=== PATIENT | female | born 1995 | race Caucasian/White ===

== ENCOUNTER 2020-07-08 09:28 | Inpatient (IN) ==
[2020-07-08] MEDS ORDERED: OXYTOCIN 30 UNITS/500 ML BAG IV PRN ×2 (09:50)
[2020-07-08] MEDS ORDERED: PENICILLIN G POTASSIUM 6 MU in DEXTROSE 5% 250 ML IV STA (10:13)
[2020-07-08 10:40] LABS: Creatinine Urine Random 65.9 mg/dl; Total Protein Urine Random < 5.0 mg/dl (0-11.9)
--- NOTE | 2020-07-08 10:42 | History & Physical Report ---
Date of Service July 08, 2020 Assessment & Plan Admission and Anticipated Discharge Date Admission Date: July 08, 2020 IUP at 40 6/7 weeks with elevated BP's and not symptomatic. PIH labs pending. will proceed with IOL now because of persistent elevated BP's pitocin augmentation of labor begun epidural analgesia when patient requests it anticipate vaginal History of Present Illness Primary Care Provider: NO PCP Patient is a 24 yo white female EDC 07/02/20 who presented for routine OB office visit at 40 6/7 weeks and was noted to have elevated BP's and she was sent to L&D for further evaluation. She was scheduled for IOL tomorrow because of post term . BP still elevated upon arrival in L&D. No other symptoms of PIH noted. NO contraction or change in discharge. She continues to be nauseous which has been a problem throughout the . GBS- positive, Blood type -O positive. Allergies Allergy/AdvReac Type Severity Reaction Status Date / Time No Known Allergies Allergy Verified 07/08/20 08:25 Home Medications Medication Instructions Recorded Confirmed Type prenat.vits,casper,nwc-edli-oervu 1 tab PO DAILY 11/20/19 07/08/20 History ondansetron HCl 4 mg tablet 4 mg PO Q4H PRN #20 tab 01/17/20 07/08/20 Rx Patient History Medical History Encounter for anatomic survey Surgical History S/P wisdom tooth extraction Family History Other Diabetes Hypertension Social History Smoking Status: Never smoker Hx Alcohol Use: No Hx Substance Use: No marital status: Single marital status details: Darren (24) [phone] Current Living Situation Comment: lives with FOB, 1 dog current occupational status: employed current occupation: [employer] Review of Systems All systems reviewed & are unremarkable except as noted in HPI & below Physical Exam Constitutional: WD/WN, vitals as above Respiratory: normal respiratory effort, lungs clear to auscultation Cardiovascular: RRR, no murmur, no edema Gastrointestinal (Abdomen): normal bowel sounds, soft, nontender, no hepatosplenomegaly Psychiatric: A+Ox3, euthymic affect Genitourinary: OB Exam Abdomen: + vertex and + estimated weight (8-9 pounds) Manual OB Exam: + cervical dilation 4 cm, + cervical effacement 90% and + station -2 OB Exam Monitor Tracing: + external FHT monitor used, + external uterine monitor used, + category I and + normal FHT variability Results & Data ([facility]) Vital Signs (Past 12 Hours) Vital Signs Pulse BP 07/08/20 10:27 97 H 141/80 H 07/08/20 10:12 100 H 136/88 07/08/20 09:58 96 H 130/70 07/08/20 09:40 93 H 129/89 Coding Level of Care Code None
[2020-07-08 10:43] LABS: Hematocrit (blood only) 40.2 % (37-47); Hemoglobin 14.1 g/dL (12.0-16.0); Mean Corpuscular Hemoglobin 31.1 pg (25-34); Mean Corpuscular Hgb Conc 35.1 g/dL (32-36); Mean Corpuscular Volume 88.5 fL (80-100); Mean Platelet Volume 10.3 fL (7.4-10.4); Platelet Count 197 K/uL (130-400); RDW Coefficient of Variation 13.3 % (11.5-14.5); RDW Standard Deviation 43.6 fL (36.4-46.3); Red Blood Count 4.54 M/uL (4.2-5.4); White Blood Count 10.16 K/uL (4.8-10.8)
--- NOTE | 2020-07-08 10:46 | Operative Report ---
PG Post Operative Report Surgeon Nellie Kaufman MD, FACOG I attest to the content of the Intraoperative Record and any orders documented therein. Any exceptions are noted below.
[2020-07-08 10:57] LABS: INR 0.9 (0.9-1.1); Partial Thromboplastin Time 25.1 Seconds (21.0-31.0); Prothrombin Time 9.2 Seconds (9.0-12.0)
[2020-07-08 11:04] LABS: Alanine Aminotransferase 18 U/L (12-78); Albumin Level 2.7 gm/dl (3.4-5.0); Aspartate Aminotransferase 15 U/L (15-37); BUN Creatinine Ratio 15.5 (10-20); Bilirubin Direct < 0.1 mg/dl (0-0.2); Blood Urea Nitrogen 7 mg/dl (7-18); Calcium 8.7 mg/dl (8.5-10.1); Carbon Dioxide 24 mmol/L (21-32); Chloride 106 mmol/L (98-107); Est GFR (African American) > 150.0; Est GFR (Non-African American) 138.3; Glucose 75 mg/dl (70-99); Potassium 3.9 mmol/L (3.5-5.1); Sodium 139 mmol/L (136-145)
[2020-07-08 11:07] LABS: Albumin Globulin Ratio 0.6 (0.9-2); Alkaline Phosphatase 214 U/L (45-117); Bilirubin,Total 0.4 mg/dl (0.2-1); Globulin 4.6 gm/dl (2.5-4.0); Total Protein 7.3 gm/dl (6.4-8.2)
[2020-07-08] MEDS: LACTATED RINGER'S 1,000 ML IV PRN ×2 (11:19→16:49)
[2020-07-08] MEDS: PENICILLIN G POTASSIUM 3 MU in DEXTROSE 5% 100 ML IV PRN ×2 (15:15→19:21)
[2020-07-08] MEDS ORDERED: SODIUM CHLORIDE 0.9% INJ 10 ML VIAL ONE ×2 (15:57→20:10)
[2020-07-08] MEDS ORDERED: ePHEDrine sulfate 50 MG/ML AMP ONE (15:57)
[2020-07-08] MEDS ORDERED: fentaNYL citrate 100 MCG/2 ML VIAL ONE ×4 (15:57→21:16)
[2020-07-08] MEDS ORDERED: BUPIVACAINE 0.25% 30 ML VIAL ONE (15:57)
[2020-07-08] MEDS ORDERED: fentaNYL 2MCG/ML ROPIVACAINE 1.25MG/ML 100 ML BAG EPI ONE (15:58)
--- NOTE | 2020-07-08 16:06 | Anesthesiology Consultation ---
Date of Service July 08, 2020 Assessment & Plan (1) Encounter for pre-operative examination: Chart Review Chart Review: Acceptable Risk for Surgery and Patient NOT seen in Pre Admission Testing Consults Requested none History Height/Weight Height: 5 ft 7 in Weight: 98.883 kg Allergies Allergy/AdvReac Type Severity Reaction Status Date / Time No Known Allergies Allergy Verified 07/08/20 08:25 Medications Home Medications Medication Instructions Recorded Confirmed Last Taken ondansetron HCl [Zofran] 4 mg PO Q6H PRN 07/08/20 07/08/20 07/07/20 21:00 prenat.vits,casper,anj-ssmz-ujqbt 1 tab PO DAILY 07/08/20 07/08/20 07/07/20 21:00 [ Vitamin] Active Medications Generic Name Dose Route Start Last Admin Trade Name Freq PRN Reason Stop Dose Admin Penicillin G Potassium 3 mu/ 106 mls @ 100 mls/hr 07/08/20 09:50 07/08/20 15:15 Dextrose IV 07/18/20 09:49 100 mls/hr Q4H PRN Administration Give until delivery Oxytocin 30 units in 500 mls @ 7.05 mls/hr 07/08/20 09:50 07/08/20 14:16 Pitocin IV 07/10/20 09:49 0.42 units/hr .Q24H PRN 7 mls/hr Labor Induction/Augmentation Titration Protocol 0.423 UNITS/HR Lactated Ringer's 1,000 mls @ 125 mls/hr 07/08/20 09:50 07/08/20 15:54 Lr IV 07/10/20 09:49 999 mls/hr .Q8H PRN Infusion L&D Protocol Protocol Past Medical History Medical History Encounter for anatomic survey Past Family History Family History Other Diabetes Hypertension Past Surgical History Surgical History S/P wisdom tooth extraction Social History Smoking Status: Never smoker Hx Alcohol Use: No Hx Substance Use: No substance use type: does not use Physical Exam Vital Signs Last Vital Signs Temp 36.7 C 07/08/20 15:00 Pulse 95 H 07/08/20 15:00 Resp 18 07/08/20 15:00 BP 129/84 07/08/20 15:00 Testing Laboratory Results 07/08/20 10:13 07/08/20 10:13 PT 9.2 Seconds (9.0-12.0) 07/08/20 10:13 INR 0.9 (0.9-1.1) 07/08/20 10:13 APTT 25.1 Seconds (21.0-31.0) 07/08/20 10:13
[2020-07-08] MEDS ORDERED: fentaNYL 2MCG/ML ROPIVACAINE 1.25MG/ML 100 ML BAG EPI PRN (16:41)
[2020-07-08] MEDS ORDERED: diphenhydrAMINE 50 MG/ML VIAL IV PRN ×2 (16:41→21:30)
[2020-07-08] MEDS ORDERED: ONDANSETRON INJ 2 MG/ML 2 ML VIAL IV PRN ×2 (16:41→21:30)
[2020-07-08] MEDS ORDERED: NALOXONE HCL 0.4 MG/1 ML VIAL/CARP IV PRN ×2 (16:41→21:30)
[2020-07-08] MEDS ORDERED: ePHEDrine sulfate 50 MG/ML AMP IV PRN ×2 (16:41→21:30)
[2020-07-08] MEDS ORDERED: NALOXONE HCL 1 MG in SODIUM CHLORIDE 0.9% 1000ML 1,000 ML IV PRN ×2 (16:41→21:30)
[2020-07-08] MEDS ORDERED: LIDOCAINE/EPINEPHRINE 2% 1:200,000 20 ML SDV ONE (20:03)
[2020-07-08] MEDS ORDERED: ONDANSETRON INJ 2 MG/ML 2 ML VIAL ONE (20:07)
[2020-07-08] MEDS ORDERED: OXYTOCIN 10 UNITS/ML VIAL ONE (20:10)
[2020-07-08] MEDS ORDERED: LACTATED RINGER'S 1,000 ML IV SCH ×2 (20:15→22:00)
[2020-07-08] MEDS ORDERED: CITRIC ACID/SODIUM CITRATE 15 ML UDC PO SCH (20:15)
--- NOTE | 2020-07-08 20:21 | Obstetrical Progress Note ---
Date of Service July 08, 2020 Assessment & Plan Admission and Anticipated Discharge Date Admission Date: July 08, 2020 Subjective patient is comfortable with epidural analgesia FHT's category 1 contractions mild to moderate q3-5 minutes cervix exam: hand presenting to elbow vaginally vertex in suprapubic position above the arm presentation patient and aware that baby is not deliverable from this presentation will proceed with section, patient and aware of risks of procedure and they ahved had all questions answered. Results & Data ([facility]) Vital Signs (Past 12 Hours) Vital Signs Temp Pulse Resp BP Pulse Ox 07/08/20 20:15 106 H 98 07/08/20 20:13 99 H 125/84 07/08/20 20:10 101 H 99 07/08/20 20:05 120 H 98 07/08/20 20:00 115 H 98 07/08/20 19:58 116 H 125/79 07/08/20 19:55 127 H 99 07/08/20 19:50 79 98 07/08/20 19:45 74 98 07/08/20 19:43 78 117/77 07/08/20 19:40 68 98 07/08/20 19:35 76 98 07/08/20 19:30 78 98 07/08/20 19:27 63 119/76 07/08/20 19:25 82 97 07/08/20 19:20 71 97 07/08/20 19:15 98.1 F 73 18 98 07/08/20 19:12 64 108/62 07/08/20 19:10 73 99 07/08/20 19:05 68 97 07/08/20 19:00 89 16 98 07/08/20 18:58 71 108/63 07/08/20 18:55 65 98 07/08/20 18:50 79 98 07/08/20 18:45 79 98 07/08/20 18:43 66 109/65 07/08/20 18:40 64 98 07/08/20 18:35 82 98 07/08/20 18:30 69 18 99 07/08/20 18:29 59 L 116/62 07/08/20 18:25 76 98 07/08/20 18:20 60 99 07/08/20 18:15 77 106/56 L 99 07/08/20 18:13 97.9 F 07/08/20 18:10 61 100 07/08/20 18:05 57 L 99 07/08/20 18:00 65 18 99 07/08/20 17:57 61 114/66 07/08/20 17:55 58 L 99 07/08/20 17:50 83 99 07/08/20 17:45 88 99 07/08/20 17:44 64 115/61 07/08/20 17:40 64 99 07/08/20 17:35 70 99 07/08/20 17:30 65 16 99 07/08/20 17:28 59 L 106/71 07/08/20 17:25 73 98 07/08/20 17:20 64 99 07/08/20 17:15 61 99 07/08/20 17:12 59 L 116/66 07/08/20 17:10 62 18 99 07/08/20 17:06 65 103/57 L 07/08/20 17:05 67 99 07/08/20 17:01 77 108/57 L 07/08/20 17:00 61 18 99 07/08/20 16:56 60 112/55 L 07/08/20 16:55 62 16 100 07/08/20 16:51 71 112/66 07/08/20 16:50 64 100 07/08/20 16:45 98.2 F 68 18 98 07/08/20 16:44 66 110/60 07/08/20 16:42 63 110/62 07/08/20 16:40 67 16 109/63 98 07/08/20 16:38 80 109/62 07/08/20 16:36 76 115/71 07/08/20 16:35 78 98 07/08/20 16:34 64 119/72 07/08/20 16:32 73 16 116/70 07/08/20 16:30 73 120/72 99 07/08/20 16:25 76 100 07/08/20 16:20 77 99 07/08/20 16:15 90 99 07/08/20 16:10 83 99 07/08/20 15:00 98.1 F 95 H 18 129/84 07/08/20 14:16 82 117/71 07/08/20 13:27 78 126/68 07/08/20 12:17 88 120/76 07/08/20 11:21 98.1 F 20 07/08/20 10:57 90 127/86 07/08/20 10:43 83 119/77 07/08/20 10:27 97 H 141/80 H 07/08/20 10:12 100 H 136/88 07/08/20 09:58 96 H 130/70 07/08/20 09:40 93 H 129/89 PG Care Time/CCT Total # of Minutes Spent Total Time Spent with Patient: Total time spent is greater than 50% in coordination of care (as documented) at patient's floor/unit and/or counseling patient: Coding Level of Care Code None
[2020-07-08] MEDS ORDERED: CITRIC ACID/SODIUM CITRATE 15 ML UDC PO ONE (20:30)
[2020-07-08] MEDS ORDERED: MIDAZOLAM HCL 1 MG/ML 2ML VIAL ONE (21:04)
[2020-07-08] MEDS ORDERED: MoRPHine SULFATE PF 1 MG/ML 10 ML AMP/VIAL ONE (21:07)
[2020-07-08] MEDS ORDERED: KETOROLAC 30 MG/ML VIAL ONE (21:15)
[2020-07-08] MEDS ORDERED: ACETAMINOPHEN 1000 MG/100 ML IV IV PRN (21:29)
[2020-07-08] MEDS ORDERED: NALOXONE HCL 0.08 MG in SYRINGE 1.8 ML IV PRN (21:30)
[2020-07-08] MEDS ORDERED: NO NARCOTICS OR SEDATIVES SCH (21:30)
[2020-07-08] MEDS ORDERED: MoRPHine SULFATE PF 1 MG/ML 10 ML AMP/VIAL EPI ONE (21:30)
[2020-07-08] MEDS ORDERED: HYDROmorphone INJ 0.5 MG/0.5 ML SYR IV PRN (21:30)
[2020-07-08] MEDS ORDERED: SODIUM CHLORIDE 0.9% 1000ML 1,000 ML IV SCH (21:30)
[2020-07-08] MEDS ORDERED: LACTATED RINGER'S 500 ML IV PRN (21:30)
[2020-07-08] MEDS ORDERED: DC INTRASPINAL MORPHINE SCH (21:30)
--- NOTE | 2020-07-08 21:40 | Post Operative Brief Note ---
PG Immediate Post Op with CF Date of Surgery July 08, 2020 Pre & Post Diagnosis Operation Date: 07/08/20 20:00 Pre-Op Diagnosis: Arm/Hand Presentation Post-Op Diagnosis: Same as Pre-op I identified the patient and participated in the time-out.: Yes Procedure Operation Date: 07/08/20 20:00 Actual Procedures p Section in LD - Nellie Kaufman MD, FACOG Surgeon Nellie Kaufman MD, FACOG [employer] Keaton Rosales MD Estimated Blood Loss 500 Findings Consistent with Post-Op Diagnosis Specimens Specimen Description: 1. Placenta - Hold 2. Cord Blood Drains Ann Catheter (Inserted prior to OR)
[2020-07-08] MEDS ORDERED: BENZOCAINE 20% AER SPR 82.5 GM CAN EXT PRN (21:58)
[2020-07-08] MEDS ORDERED: MAGNESIUM HYDROXIDE SUSP 30 ML UDC PO PRN (21:58)
[2020-07-08] MEDS ORDERED: SUPERCREAM 0.870% 15 GM JAR EXT PRN (21:58)
[2020-07-08] MEDS ORDERED: SENNA 8.6 MG TAB PO PRN (21:58)
[2020-07-08] MEDS ORDERED: DIPHTHERIA/TETANUS/PERTUSSIS 0.5 ML SYR/VIAL IM ONE (21:58)
[2020-07-08] MEDS ORDERED: HYDROCORTISONE ACETATE 25 MG SUPP PR PRN (21:58)
--- NOTE | 2020-07-08 22:03 | Anesthesia Procedure Note ---
Date of Service July 08, 2020 Anesthesia Post Epidural Note Vital Signs Vital Signs: Temp Pulse Resp BP Pulse Ox 36.7 C 81 18 111/63 99 07/08/20 19:15 07/08/20 22:00 07/08/20 19:15 07/08/20 21:56 07/08/20 22:00 Pain Intensity Lower Abdomen: Pain Intensity: 4 Notes Mental Status: alert / awake / arousable and participated in evaluation Nausea / Vomiting: adequately controlled Pain: adequately controlled Airway Patency, RR, SpO2: stable & adequate BP & HR: stable & adequate Hydration State: stable & adequate Neuraxial Anesthesia: was administered and sensory block is resolving Anesthetic Complications: no major complications apparent and Pt Satisfied with anesthetic care Epidural: Removed without complications and With tip intact Notes: Epidural site clean, dry and intact. No signs of edema, erythema or bruising at insertion site. Pt instructed to request anesthesia if she has residual lower extremity numbness or if she develops lower extremity pain or weakness, back pain or headache.
--- NOTE | 2020-07-08 22:04 | Anesthesiology Progress Note ---
Date of Service July 08, 2020 Anesthesia Post Procedure Vital Signs Vital Signs: Temp Pulse Resp BP Pulse Ox 07/08/20 22:00 81 99 07/08/20 21:56 85 111/63 07/08/20 21:55 83 99 07/08/20 20:39 160 H 155/96 H 07/08/20 20:35 140 H 99 07/08/20 20:32 126 H 140/78 07/08/20 20:30 129 H 99 07/08/20 20:28 117 H 130/74 07/08/20 20:25 103 H 98 07/08/20 20:24 113 H 126/86 07/08/20 20:20 97 H 99 07/08/20 20:15 106 H 98 07/08/20 20:13 99 H 125/84 07/08/20 20:10 101 H 99 07/08/20 20:05 120 H 98 07/08/20 20:00 115 H 98 07/08/20 19:58 116 H 125/79 07/08/20 19:55 127 H 99 07/08/20 19:50 79 98 07/08/20 19:45 74 98 07/08/20 19:43 78 117/77 07/08/20 19:40 68 98 07/08/20 19:35 76 98 07/08/20 19:30 78 98 07/08/20 19:27 63 119/76 07/08/20 19:25 82 97 07/08/20 19:20 71 97 07/08/20 19:15 36.7 C 73 18 98 07/08/20 19:12 64 108/62 07/08/20 19:10 73 99 07/08/20 19:05 68 97 07/08/20 19:00 89 16 98 07/08/20 18:58 71 108/63 07/08/20 18:55 65 98 07/08/20 18:50 79 98 07/08/20 18:45 79 98 07/08/20 18:43 66 109/65 07/08/20 18:40 64 98 07/08/20 18:35 82 98 07/08/20 18:30 69 18 99 07/08/20 18:29 59 L 116/62 07/08/20 18:25 76 98 07/08/20 18:20 60 99 07/08/20 18:15 77 106/56 L 99 07/08/20 18:13 36.6 C 07/08/20 18:10 61 100 07/08/20 18:05 57 L 99 07/08/20 18:00 65 18 99 07/08/20 17:57 61 114/66 07/08/20 17:55 58 L 99 07/08/20 17:50 83 99 07/08/20 17:45 88 99 07/08/20 17:44 64 115/61 07/08/20 17:40 64 99 07/08/20 17:35 70 99 07/08/20 17:30 65 16 99 07/08/20 17:28 59 L 106/71 07/08/20 17:25 73 98 07/08/20 17:20 64 99 07/08/20 17:15 61 99 07/08/20 17:12 59 L 116/66 07/08/20 17:10 62 18 99 07/08/20 17:06 65 103/57 L 07/08/20 17:05 67 99 07/08/20 17:01 77 108/57 L 07/08/20 17:00 61 18 99 07/08/20 16:56 60 112/55 L 07/08/20 16:55 62 16 100 07/08/20 16:51 71 112/66 07/08/20 16:50 64 100 07/08/20 16:45 36.8 C 68 18 98 07/08/20 16:44 66 110/60 07/08/20 16:42 63 110/62 07/08/20 16:40 67 16 109/63 98 07/08/20 16:38 80 109/62 07/08/20 16:36 76 115/71 07/08/20 16:35 78 98 07/08/20 16:34 64 119/72 07/08/20 16:32 73 16 116/70 07/08/20 16:30 73 120/72 99 07/08/20 16:25 76 100 07/08/20 16:20 77 99 07/08/20 16:15 90 99 07/08/20 16:10 83 99 07/08/20 15:00 36.7 C 95 H 18 129/84 07/08/20 14:16 82 117/71 07/08/20 13:27 78 126/68 07/08/20 12:17 88 120/76 07/08/20 11:21 36.7 C 20 07/08/20 10:57 90 127/86 07/08/20 10:43 83 119/77 07/08/20 10:27 97 H 141/80 H 07/08/20 10:12 100 H 136/88 07/08/20 09:58 96 H 130/70 07/08/20 09:40 93 H 129/89 Pain Intensity Lower Abdomen: Pain Intensity: 4 Transfer of Care Handoff Completed per policy Notes Mental Status: alert / awake / arousable and participated in evaluation Nausea / Vomiting: adequately controlled Pain: adequately controlled Airway Patency, RR, SpO2: stable & adequate BP & HR: stable & adequate Hydration State: stable & adequate Neuraxial Anesthesia: was administered and sensory block is resolving Anesthetic Complications: no major complications apparent and Pt Satisfied with anesthetic care
--- NOTE | 2020-07-08 22:05 | Operative Report ---
PG Post Operative Report Pre & Post Diagnosis Operation Date: 07/08/20 20:00 Pre-Op Diagnosis: Arm/Hand Presentation Post-Op Diagnosis: Same as Pre-op plus delivery of viable male infant I identified the patient and participated in the time-out.: Yes Procedure Operation Date: 07/08/20 20:00 Actual Procedures p Section in LD - Nellie Kaufman MD, FACOG Surgeon Nellie Kaufman MD, FACOG [employer] Keaton Rosales MD Estimated Blood Loss 500 Findings Consistent with Post-Op Diagnosis Specimens placenta to hold Drains Ann catheter to straight drainage- clear urine at end of case Anesthesia Type Labor Epidural Complications none Disposition Accompanied Patient To Recovery: Yes Disposition: L&D Indications Patient is a 24-year-old 1 para 0 white female who presents at 41 weeks for induction of labor because her blood pressure was elevated and postterm . The was noted to be in a vertex presentation upon arrival in labor and delivery Pitocin induction of labor was begun by protocol. At 4 cm dilation of membranes were ruptured for a copious amount of clear fluid. She received effective epidural analgesia. When the patient was examined the next time, the presenting part was no longer vertex and was an arm and hand presenting to the level of the shoulder. Because of the malpresentation, the patient and her were informed that section would be necessary for delivery. After the risks and the procedure were described to the patient and her , and all questions were answered, we proceeded to section. Description of Procedure After the patient received adequate epidural anesthesia she was prepped and draped in usual sterile fashion. A low transverse skin incision was made with a scalpel and carried to the fascia with the same scalpel. The incision was extended transversely with Campos scissors. The edges were then grasped with Ruben clamps and the underlying rectus muscles bluntly sharply dissected off the overlying fascia. The rectus muscles were then bluntly divided on the midline and the underlying peritoneum elevated and entered bluntly. The bladder was then taken down off the anterior surface of the uterus with Metzenbaum scissors and placed behind the bladder blade. The lower uterine segment was quite thin, and the head was noted To be just above the sense of the symphysis. The low uterine segment was entered with a scalpel and extended transversely. The 's head was delivered through the incision first with moderate fundal pressure and assistance of the vacuum. After the 's head was delivered the right arm was disimpacted from the pelvis and delivered next. The rest of the infant then delivered easily. The cord was then clamped and cut and the handed was handed off to Dr. Medrano who was in attendance as mural artist. The placenta was then manually removed and the uterus exteriorized and covered a clean lap sponge. The uterine cavity was explored and some retained membranes were removed. The uterus was then closed in 2 layers in a running locking imbricating fashion with 0 Monocryl suture. Hemostasis was noted to be excellent. The posterior cul-de-sac was examined and there was no retained fluid or blood noted. The incision was examined once more and continued to have excellent hemostasis. The gutters were explored and found to be free of any clot or fluid. The anterior cul-de-sac was irrigated with normal saline after the rectus muscles were closed with individual stitches of 0 Monocryl. The fascia was closed in a running fashion with 0 Vicryl. Bella's fascia was closed with 2 0 Plain in a running fashion. This was done after irrigating the adipose layer. The skin edges were then closed in a subcuticular fashion with 4-0 Vicryl. Urine was clear at the end of the case. Mother and tolerated the procedure well and were stable upon arrival in labor and delivery. I attest to the content of the Intraoperative Record and any orders documented therein. Any exceptions are noted below. OB Procedure charges OB Charges 95247 C/S
[2020-07-08] MEDS: OXYTOCIN 20 UNITS in LACTATED RINGER'S 1,000 ML IV SCH (22:28)
[2020-07-09] MEDS ORDERED: LACTATED RINGER'S 500 ML IV ONE (00:08)
[2020-07-09] MEDS: KETOROLAC 30 MG/ML VIAL IV PRN ×2 (05:43→13:56)
[2020-07-09 06:43] LABS: Basophils # (auto) 0.02 K/uL (0-0.2); Basophils % (auto) 0.1 %; Eosinophils # (auto) 0.03 K/uL (0-0.5); Eosinophils % (auto) 0.2 %; Hemoglobin 12.2 g/dL (12.0-16.0); Immature Granulocytes # (auto) 0.04 K/uL (0.00-0.02); Immature Granulocytes % (auto) 0.3 %; Lymphocytes # (auto) 2.48 K/uL (1.2-3.4); Lymphocytes % (auto) 17.2 %; Mean Corpuscular Hemoglobin 30.8 pg (25-34); Mean Corpuscular Hgb Conc 34.9 g/dL (32-36); Mean Corpuscular Volume 88.4 fL (80-100); Mean Platelet Volume 10.3 fL (7.4-10.4); Monocytes # (auto) 0.87 K/uL (0.11-0.59); Neutrophils # (auto) 10.98 K/uL (1.4-6.5); Neutrophils % (auto) 76.2 %; Platelet Count 151 K/uL (130-400); RDW Coefficient of Variation 13.4 % (11.5-14.5); RDW Standard Deviation 43.4 fL (36.4-46.3); Red Blood Count 3.96 M/uL (4.2-5.4); White Blood Count 14.42 K/uL (4.8-10.8)
[2020-07-09] MEDS: OXYTOCIN 20 UNITS in LACTATED RINGER'S 1,000 ML IV SCH (07:08)
[2020-07-09] MEDS: DOCUSATE SODIUM 100 MG CAP PO SCH ×2 (08:49→19:40)
[2020-07-09] MEDS: FERROUS SULFATE 325 MG TAB PO SCH (08:49)
[2020-07-09] MEDS: SIMETHICONE 80 MG CHEW PO SCH ×4 (08:49→19:40)
[2020-07-09] MEDS: PRENATAL VITAMIN 1 TAB PO SCH (08:49)
--- NOTE | 2020-07-09 09:07 | Obstetrical Progress Note ---
Date of Service <Julisa Ramirez DO - Last Filed: 07/09/20 09:07> July 09, 2020 Assessment & Plan <Julisa Ramirez DO - Last Filed: 07/09/20 09:07> (1) state: POD #1 - PNL: Rh pos, RI, GBS positive, COVID neg - Feels well today. Eating well, voiding well, ambulating well. - Pain well controlled with ibuprofen 600mg Q4H PRN - Routine care -- OOB, ambulation, diet progression as tolerated - After discharge will have 6 week follow-up with Dr. Castrejon. Subjective <Julisa Ramirez DO - Last Filed: 07/09/20 09:07> Albert Joseph is a 24 y/o female who is POD #1 following delivery due to malpresentation after IOL due to HTN at 40 +6 weeks. She reports feeling well overall this morning. Minimal abdominal cramping well managed on analgesics. Voiding without dysuria. Tolerating meals overnight without difficulty. Patient has been able to ambulate some. Has persistent lochia with some improvement this morning. Currently . Review of Systems Denies fever or chills. Denies shortness of breath or cough. Denies chest pain. Denies breast pain. Denies dysuria. Denies leg pain or leg swelling. Denies headache or changes in vision. Physical Exam <Julisa Ramirez DO - Last Filed: 07/09/20 09:07> General: Alert, oriented. No acute distress. Cardiac: Regular rate and rhythm. No murmurs. Respiratory: Clear to auscultation bilaterally a/p, no wheezes/rales/rhonchi. No increased work of breathing. Symmetrical chest rise. No respiratory distress. Abdomen: Soft, nontender, nondistended. Bowel sounds present. Uterus: Uterine fundus firm, palpable at umbilicus. Surgical scar clean and healing well. Lower Extremities: No lower extremity edema or swelling. No deep calf pain. Results & Data ([facility]) <Julisa Ramirez DO - Last Filed: 07/09/20 09:07> Vital Signs (Past 12 Hours) Vital Signs Temp Pulse Pulse Pulse Resp BP BP 07/09/20 07:30 36.6 C 64 18 116/81 07/09/20 07:15 18 07/09/20 06:26 18 07/09/20 05:25 18 07/09/20 04:37 18 07/09/20 03:15 18 07/09/20 02:30 18 07/09/20 01:18 18 07/09/20 00:15 37 C 71 18 113/76 07/09/20 00:01 75 116/76 07/09/20 00:00 37.0 C 65 18 112/62 07/08/20 23:55 58 L 114/72 07/08/20 23:50 60 07/08/20 23:46 57 L 119/79 07/08/20 23:45 57 L 07/08/20 23:40 64 07/08/20 23:36 64 114/64 07/08/20 23:35 62 07/08/20 23:34 65 108/57 L 07/08/20 23:30 69 18 07/08/20 23:25 60 07/08/20 23:20 63 07/08/20 23:18 18 07/08/20 23:15 70 110/73 07/08/20 23:10 63 07/08/20 23:05 56 L 111/67 07/08/20 23:00 57 L 18 07/08/20 22:55 60 18 110/63 07/08/20 22:50 59 L 07/08/20 22:45 62 18 104/60 07/08/20 22:40 59 L 103/59 L 07/08/20 22:35 56 L 18 98/56 L 07/08/20 22:28 71 90/54 L 07/08/20 22:25 18 07/08/20 22:15 18 07/08/20 22:08 94 H 113/65 07/08/20 22:05 76 18 07/08/20 22:00 81 07/08/20 21:56 85 111/63 07/08/20 21:55 36.7 C 83 18 Pulse Ox 07/09/20 07:30 96 07/09/20 07:15 97 07/09/20 06:26 92 07/09/20 05:25 95 07/09/20 04:37 94 07/09/20 03:15 98 07/09/20 02:30 95 07/09/20 01:18 95 07/09/20 00:15 96 07/09/20 00:01 07/09/20 00:00 98 07/08/20 23:55 97 07/08/20 23:50 97 07/08/20 23:46 07/08/20 23:45 97 07/08/20 23:40 98 07/08/20 23:36 07/08/20 23:35 98 07/08/20 23:34 07/08/20 23:30 98 07/08/20 23:25 98 07/08/20 23:20 98 07/08/20 23:18 07/08/20 23:15 98 07/08/20 23:10 99 07/08/20 23:05 98 07/08/20 23:00 98 07/08/20 22:55 98 07/08/20 22:50 98 07/08/20 22:45 98 07/08/20 22:40 98 07/08/20 22:35 98 07/08/20 22:28 07/08/20 22:25 07/08/20 22:15 07/08/20 22:08 07/08/20 22:05 98 07/08/20 22:00 99 07/08/20 21:56 07/08/20 21:55 97 Laboratory Results 07/09/20 07/08/20 07/08/20 Range/Units 06:09 10:13 10:13 WBC 14.42 H 10.16 (4.8-10.8) K/uL RBC 3.96 L 4.54 (4.2-5.4) M/uL Hgb 12.2 14.1 (12.0-16.0) g/dL Hct 35.0 L 40.2 (37-47) % MCV 88.4 88.5 (80-100) fL MCH 30.8 31.1 (25-34) pg MCHC 34.9 35.1 (32-36) g/dL RDW Std Deviation 43.4 43.6 (36.4-46.3) fL RDW Coeff of Arik 13.4 13.3 (11.5-14.5) % Plt Count 151 197 (130-400) K/uL MPV 10.3 10.3 (7.4-10.4) fL Immature Gran % (Auto) 0.3 % Neut % (Auto) 76.2 % Lymph % (Auto) 17.2 % [place] % (Auto) 6.0 % Eos % (Auto) 0.2 % Baso % (Auto) 0.1 % Neut # (Auto) 10.98 H (1.4-6.5) K/uL Lymph # (Auto) 2.48 (1.2-3.4) K/uL [place] # (Auto) 0.87 H (0.11-0.59) K/uL Eos # (Auto) 0.03 (0-0.5) K/uL Baso # (Auto) 0.02 (0-0.2) K/uL Immature Gran # (Auto) 0.04 H (0.00-0.02) K/uL PT (9.0-12.0) Seconds INR (0.9-1.1) APTT (21.0-31.0) Seconds PTT Ratio Sodium 139 (136-145) mmol/L Potassium 3.9 (3.5-5.1) mmol/L Chloride 106 (98-107) mmol/L Carbon Dioxide 24 (21-32) mmol/L Anion Gap 9.0 (3-11) BUN 7 (7-18) mg/dl Creatinine 0.48 L Est Cr Clr Drug Dosing Not Reportable Est GFR ( Amer) > 150.0 Est GFR (Non-Af Amer) 138.3 BUN/Creatinine Ratio 15.5 (10-20) Glucose 75 (70-99) mg/dl Calcium 8.7 (8.5-10.1) mg/dl Total Bilirubin 0.4 (0.2-1) mg/dl Direct Bilirubin < 0.1 (0-0.2) mg/dl AST 15 ALT 18 Alkaline Phosphatase 214 H (45-117) U/L Total Protein 7.3 (6.4-8.2) gm/dl Albumin 2.7 L (3.4-5.0) gm/dl Globulin 4.6 H (2.5-4.0) gm/dl Albumin/Globulin Ratio 0.6 L (0.9-2) Ur Random Creatinine mg/dl U Random Total Protein (0-11.9) mg/dl Protein/Creatinin Ratio COVID-19 Eval Order SARS-CoV-2, RNA, NAAT (NEGATIVE) 07/08/20 07/08/20 07/08/20 Range/Units 10:13 10:13 10:06 WBC (4.8-10.8) K/uL RBC (4.2-5.4) M/uL Hgb (12.0-16.0) g/dL Hct (37-47) % MCV (80-100) fL MCH (25-34) pg MCHC (32-36) g/dL RDW Std Deviation (36.4-46.3) fL RDW Coeff of Arik (11.5-14.5) % Plt Count (130-400) K/uL MPV (7.4-10.4) fL Immature Gran % (Auto) % Neut % (Auto) % Lymph % (Auto) % [place] % (Auto) % Eos % (Auto) % Baso % (Auto) % Neut # (Auto) (1.4-6.5) K/uL Lymph # (Auto) (1.2-3.4) K/uL [place] # (Auto) (0.11-0.59) K/uL Eos # (Auto) (0-0.5) K/uL Baso # (Auto) (0-0.2) K/uL Immature Gran # (Auto) (0.00-0.02) K/uL PT 9.2 (9.0-12.0) Seconds INR 0.9 (0.9-1.1) APTT 25.1 (21.0-31.0) Seconds PTT Ratio 1.0 Sodium (136-145) mmol/L Potassium (3.5-5.1) mmol/L Chloride (98-107) mmol/L Carbon Dioxide (21-32) mmol/L Anion Gap (3-11) BUN (7-18) mg/dl Creatinine Cancelled Est Cr Clr Drug Dosing Cancelled Est GFR ( Amer) Cancelled Est GFR (Non-Af Amer) Cancelled BUN/Creatinine Ratio (10-20) Glucose (70-99) mg/dl Calcium (8.5-10.1) mg/dl Total Bilirubin (0.2-1) mg/dl Direct Bilirubin (0-0.2) mg/dl AST Cancelled ALT Cancelled Alkaline Phosphatase (45-117) U/L Total Protein (6.4-8.2) gm/dl Albumin (3.4-5.0) gm/dl Globulin (2.5-4.0) gm/dl Albumin/Globulin Ratio (0.9-2) Ur Random Creatinine mg/dl U Random Total Protein (0-11.9) mg/dl Protein/Creatinin Ratio COVID-19 Eval Order SARS-CoV-2, RNA, NAAT NEGATIVE (NEGATIVE) 07/08/20 07/08/20 Range/Units 10:06 09:57 WBC (4.8-10.8) K/uL RBC (4.2-5.4) M/uL Hgb (12.0-16.0) g/dL Hct (37-47) % MCV (80-100) fL MCH (25-34) pg MCHC (32-36) g/dL RDW Std Deviation (36.4-46.3) fL RDW Coeff of Arik (11.5-14.5) % Plt Count (130-400) K/uL MPV (7.4-10.4) fL Immature Gran % (Auto) % Neut % (Auto) % Lymph % (Auto) % [place] % (Auto) % Eos % (Auto) % Baso % (Auto) % Neut # (Auto) (1.4-6.5) K/uL Lymph # (Auto) (1.2-3.4) K/uL [place] # (Auto) (0.11-0.59) K/uL Eos # (Auto) (0-0.5) K/uL Baso # (Auto) (0-0.2) K/uL Immature Gran # (Auto) (0.00-0.02) K/uL PT (9.0-12.0) Seconds INR (0.9-1.1) APTT (21.0-31.0) Seconds PTT Ratio Sodium (136-145) mmol/L Potassium (3.5-5.1) mmol/L Chloride (98-107) mmol/L Carbon Dioxide (21-32) mmol/L Anion Gap (3-11) BUN (7-18) mg/dl Creatinine Est Cr Clr Drug Dosing Est GFR ( Amer) Est GFR (Non-Af Amer) BUN/Creatinine Ratio (10-20) Glucose (70-99) mg/dl Calcium (8.5-10.1) mg/dl Total Bilirubin (0.2-1) mg/dl Direct Bilirubin (0-0.2) mg/dl AST ALT Alkaline Phosphatase (45-117) U/L Total Protein (6.4-8.2) gm/dl Albumin (3.4-5.0) gm/dl Globulin (2.5-4.0) gm/dl Albumin/Globulin Ratio (0.9-2) Ur Random Creatinine 65.9 mg/dl U Random Total Protein < 5.0 (0-11.9) mg/dl Protein/Creatinin Ratio TNP [facility], NAAT (NEGATIVE) <Nellie Kaufman MD, FACOG - Last Filed: 07/09/20 09:12> Co-Signing Physician Notes Resident Physician Supervision Note: I was present with Dr. Ramirez during the history and exam. I discussed the case with the resident and agree with the findings and plan as documented in the note. Any exceptions or clarifications are listed here: [None] Documented By: Nellie Kaufman MD, FACOG Resident Activity Tracking <Julisa Ramirez DO - Last Filed: 07/09/20 09:07> Resident Involvement: Resident Care Provided Care Provided: OB Delivery
[2020-07-09] MEDS ORDERED: ONDANSETRON INJ 2 MG/ML 2 ML VIAL IV PRN (15:30)
[2020-07-09] MEDS ORDERED: KETOROLAC 30 MG/ML VIAL IV PRN (15:30)
[2020-07-09] MEDS ORDERED: MEPERIDINE HCL 50 MG/ML CARP IV PRN (15:30)
[2020-07-09] MEDS ORDERED: PROMETHAZINE HCL 25 MG in SODIUM CHLORIDE 0.9% 50 ML IV PRN (15:30)
[2020-07-09] MEDS ORDERED: diphenhydrAMINE Capsule 25 MG CAP PO PRN (15:30)
[2020-07-09] MEDS ORDERED: diphenhydrAMINE 50 MG/ML VIAL IV PRN (15:30)
[2020-07-09] MEDS: oxyCODONE/ACETAMINOPHEN 5mg/325mg TAB PO PRN ×2 (17:36→21:02)
[2020-07-09] MEDS ORDERED: bisacodyL 5 MG TABEC PO SCH (20:00)
[2020-07-09] MEDS: IBUPROFEN 600 MG TAB PO PRN (21:02)
[2020-07-10] MEDS: IBUPROFEN 600 MG TAB PO PRN ×5 (01:32→23:47)
[2020-07-10] MEDS: oxyCODONE/ACETAMINOPHEN 5mg/325mg TAB PO PRN ×5 (01:32→23:46)
[2020-07-10 06:28] LABS: Hematocrit (blood only) 39.5 % (37-47); Hemoglobin 13.3 g/dL (12.0-16.0)
--- NOTE | 2020-07-10 07:33 | Obstetrical Progress Note ---
Date of Service <Julisa Ramirez DO - Last Filed: 07/10/20 07:33> July 10, 2020 Assessment & Plan <Julisa Ramirez DO - Last Filed: 07/10/20 07:33> (1) state: POD #2 - PNL: Rh pos, RI, GBS positive, COVID neg - Feels well today. Eating well, voiding well, ambulating well. - Pain well controlled with ibuprofen 600mg Q4H PRN - Routine care -- OOB, ambulation, diet progression as tolerated - After discharge will have 6 week follow-up with Dr. Castrejon. - Plan for d/c home tomorrow pending continued satisfactory progression of care. Subjective <Julisa Ramirez DO - Last Filed: 07/10/20 07:33> Albert Joseph is a 24 y/o female who is POD #2 following delivery due to malpresentation at 40 +6 weeks. She reports feeling well overall this morning. Mild abdominal cramping and 4/10 pain well managed on analgesics. Voiding without dysuria. Tolerating meals overnight without difficulty, nausea, or vomiting. Patient has been able to ambulate some. She is passing gas. Has persistent lochia with some improvement this morning. Currently bottle feeding. Review of Systems Denies fever or chills. Denies shortness of breath or cough. Denies chest pain. Denies breast pain. Denies dysuria. Denies leg pain or leg swelling. Denies headache or changes in vision. Physical Exam <Julisa Ramirez DO - Last Filed: 07/10/20 07:33> General: Alert, oriented. No acute distress. Cardiac: Regular rate and rhythm. No murmurs. Respiratory: Clear to auscultation bilaterally a/p, no wheezes/rales/rhonchi. No increased work of breathing. Symmetrical chest rise. No respiratory distress. Abdomen: Soft, nontender, nondistended. Bowel sounds present. Uterus: Uterine fundus firm, palpable at umbilicus. Surgical scar clean and healing well. Lower Extremities: No lower extremity edema or swelling. No deep calf pain. Results & Data ([facility]) <Julisa Ramirez DO - Last Filed: 07/10/20 07:33> Vital Signs (Past 12 Hours) Vital Signs Temp Pulse Resp BP Pulse Ox 07/09/20 22:20 36.8 C 60 16 116/79 98 07/09/20 19:40 36.8 C 89 16 116/81 97 Laboratory Results 07/10/20 Range/Units 06:18 Hgb 13.3 (12.0-16.0) g/dL Hct 39.5 (37-47) % <Nichole Rosales MD, FACOG - Last Filed: 07/10/20 07:42> Co-Signing Physician Notes Resident Physician Supervision Note: I was present with Dr. Ramirez during the history and exam. I discussed the case with the resident and agree with the findings and plan as documented in the note. Any exceptions or clarifications are listed here: [None] Documented By: Nichole Rosales MD, FACOG Resident Activity Tracking <Julisa Ramirez DO - Last Filed: 07/10/20 07:33> Resident Involvement: Resident Care Provided Care Provided: OB Delivery
[2020-07-10] MEDS: PRENATAL VITAMIN 1 TAB PO SCH (08:36)
[2020-07-10] MEDS: SIMETHICONE 80 MG CHEW PO SCH ×4 (08:36→20:36)
[2020-07-10] MEDS: FERROUS SULFATE 325 MG TAB PO SCH (08:36)
[2020-07-10] MEDS: DOCUSATE SODIUM 100 MG CAP PO SCH ×2 (08:36→20:36)
[2020-07-10] MEDS ORDERED: bisacodyL 10 MG SUPP PR PRN (21:58)
--- NOTE | 2020-07-11 07:09 | Obstetrical Progress Note ---
Date of Service <Julisa Ramirez DO - Last Filed: 07/11/20 07:25> July 11, 2020 Assessment & Plan <Julisa Viktor Ramirez DO - Last Filed: 07/11/20 07:25> (1) state: POD #3 - PNL: Rh pos, RI, GBS positive, COVID neg - Feels well today. Eating well, voiding well, ambulating well. - Pain well controlled with ibuprofen 600mg Q4H PRN - Routine care -- OOB, ambulation, diet progression as tolerated - Elected to bottle feed. Instructed patient on use of tight bra/sports bra to prevent influx of milk. - Discharge instructions discussed in detail with patient. All questions answered. - After discharge will have 6 week follow-up with Dr. Castrejon. Subjective <Julisa MarieeBubba Ramirez - Last Filed: 07/11/20 07:25> Albert Joseph is a 24 y/o female who is POD #3 following delivery due to malpresentation at 40 +6 weeks. She reports feeling well overall this morning. Minimal abdominal cramping and 3/10 pain well managed on analgesics. Voiding without dysuria. Tolerating meals overnight without difficulty, nausea, or vomiting. Patient has been able to ambulate some. She is passing gas but has not yet had a bowel movement. Has persistent lochia with some improvement this morning. Currently bottle feeding. Review of Systems Denies fever or chills. Denies shortness of breath or cough. Denies chest pain. Denies breast pain. Denies dysuria. Denies leg pain or leg swelling. Denies headache or changes in vision. Physical Exam <Julisa Ramirez DO - Last Filed: 07/11/20 07:25> General: Alert, oriented. No acute distress. Cardiac: Regular rate and rhythm. No murmurs. Respiratory: Clear to auscultation bilaterally a/p, no wheezes/rales/rhonchi. No increased work of breathing. Symmetrical chest rise. No respiratory distress. Abdomen: Soft, nontender, nondistended. Bowel sounds present. Uterus: Uterine fundus firm, palpable at umbilicus on left. Surgical scar clean and healing well. Lower Extremities: No lower extremity edema or swelling. No deep calf pain. Results & Data ([facility]) <Julisa Ramirez DO - Last Filed: 07/11/20 07:25> Vital Signs (Past 12 Hours) Vital Signs Temp Pulse Resp BP Pulse Ox 07/10/20 23:45 36.7 C 58 L 16 117/78 99 07/10/20 20:30 36.7 C 77 16 132/89 100 <Li Erwin MD, FACOG - Last Filed: 07/11/20 07:31> Co-Signing Physician Notes Resident Physician Supervision Note: I was present with Dr. Ramirez during the history and exam. I discussed the case with the resident and agree with the findings and plan as documented in the note. Any exceptions or clarifications are listed here: doing well, ready to go home. pain meds working well. eating, voiding, ambulating. ff 2 down, nt, incision c/d/i and nt calves. instructions reviewed. script sent. plan 6wk pp check. Documented By: Li Erwin MD, FACOG Resident Activity Tracking <Julisa Ramirez DO - Last Filed: 07/11/20 07:25> Resident Involvement: Resident Care Provided Care Provided: OB Delivery
[2020-07-11] MEDS: FERROUS SULFATE 325 MG TAB PO SCH (07:24)
[2020-07-11] MEDS: DOCUSATE SODIUM 100 MG CAP PO SCH (07:24)
[2020-07-11] MEDS: SIMETHICONE 80 MG CHEW PO SCH (07:24)
[2020-07-11] MEDS: PRENATAL VITAMIN 1 TAB PO SCH (07:24)
[2020-07-11] MEDS: IBUPROFEN 600 MG TAB PO PRN ×2 (07:24→11:13)
[2020-07-11] MEDS: oxyCODONE/ACETAMINOPHEN 5mg/325mg TAB PO PRN ×2 (07:25→11:14)
--- NOTE | 2020-07-15 22:09 | Discharge Summary (DS) ---
PRINCIPAL DIAGNOSIS: Intrauterine at 40 weeks, presentation for induction of labor because of elevated blood pressure, arm, hand presentation. PRINCIPAL PROCEDURE: Primary low transverse section. HISTORY: The patient is a 24-year-old 1, para 0 white female who presented at 41 weeks for induction because her blood pressure was elevated and because she was post-term . Initially the infant was noted to be in vertex presentation and appeared to be engaged in the pelvis. Induction of labor was begun. At 4 cm dilated membranes were ruptured for a copious amount of clear fluid. After this, she received effective epidural. She was examined after the epidural was effective and it was noted that the presenting part was an arm prolapsing through the cervix to the level of the elbow. The vertex was now at the level of the symphysis by ultrasound. Because of the prolapsed arm vaginally, it was felt prudent to proceed with low transverse section, which was done without difficulty. She had an uncomplicated postop course. She remained afebrile throughout her hospital stay, her blood pressure normalized shortly after her arrival in labor and delivery. She was eating regular diet, ambulating and voiding without difficulty on her 1st postop day. Pain was well controlled with just ibuprofen 600 mg every 4-6 hours. LABORATORY DATA: Hemoglobin on admission was 12.2, hematocrit of 35.0. First postop day, hemoglobin was 13.3, hematocrit of 39.5. [facility] labs were also within normal limits on admission. She was sent home in good condition with a prescription for 600 mg ibuprofen every 4-6 hours p.r.n. pain. She is to call for temperature of 101 degrees or higher, heavy vaginal bleeding, burning with urination, increased redness, drainage or pain from her incision, calf tenderness or preeclamptic symptoms. She is to be seen in the office in 6 weeks for followup visit.
== END 2020-07-11 11:30 | disposition home or self-care (01) | DRG 788 ==
LOC: 4S1 09:28 → 4S2 07-09 00:18

== ENCOUNTER 2023-12-24 04:07 | Inpatient (IN) ==
[2023-12-24] MEDS: LACTATED RINGER'S 1,000 ML IV PRN (04:59)
[2023-12-24] MEDS: LACTATED RINGER'S 1,000 ML IV SCH ×2 (07:00→13:40)
--- NOTE | 2023-12-24 07:35 | History & Physical Report ---
Date of Service December 24, 2023 Assessment & Plan (1) Previous delivery affecting , antepartum: Plan: Patient has been 1 to 1.5 cm on 2 checks her contraction pattern is not that of active labor and heart rate tracing is category 1 I advised that because she is only 37 weeks and 2 days that we would need to see clear change of the cervix noted proceed with she is actually responded to hydration and says that tightenings are less at this stage Continue to observe History of Present Illness Primary Care Provider: Tyrone Pineda MD Visit [place] Calculator Estimated Delivery Date Method Current WG Current Estimate 01/10/24 LMP (Certain) 37w 1d LMP: 04/05/23 : 2 Full term: 1 Premature: 0 Total Number of Induced Abortions: 0 Total Number of Spontaneous Abortions: 0 Ectopics: 0 Multiple births: 0 Number of Living Children: 1 and Delivery Plans Previous --malpresentation - Plans for repeat and tubal C/S WITH TUBAL SCHEDULED FOR 01/06/[address] STRICKLAND Patient reported contractions last night and also shooting vaginal pain she is 37 weeks and a few days second first was a section and she plans on a repeat section. While she feels tightenings in the upper abdomen it was the sharp vaginal pains that brought her in. No leakage of fluid no bleeding Allergies Allergy/AdvReac Type Severity Reaction Status Date / Time No Known Allergies Allergy Verified 12/24/23 04:27 Home Medications Medication Instructions Recorded Confirmed Type 21-iron fu-folic acid 1 tab PO HS 05/27/23 12/24/23 History [ Complete] ondansetron HCl 8 mg tablet 8 mg PO Q8H PRN nausea and 08/15/23 12/24/23 Rx vomiting 5 days #30 tabs Patient History Medical History History of anxiety No medications at this time Varicella vaccination Surgical History (Updated 12/24/23 @ 04:27 by Maty Carlin, RN) S/P section 07/08/20 malpresentation S/P wisdom tooth extraction Family History Grandmother (Maternal) Breast cancer great grandmother Family/Other Hydrocephalus Nephew Brain tumor Other Diabetes Hypertension Denies family history of Ovarian cancer Colorectal cancer Social History (Updated 05/27/23 @ 09:00 by Allie Lafleur) Smoking Status: Never smoker Second Hand Exposure: No; Do You Dip or Chew Tobacco: No; Hx Alcohol Use: No Hx Substance Use: No Preferred Language: Turkmen Communication Ability: Effective Rn Ante Partum Required: No Beliefs That Will Affect Care: None marital status: marital status details: Darren Arguello(28) [phone] Current Living Situation: Spouse Current Living Situation Comment: house with and son current occupational status: employed current occupation: [employer] Other Information That Helps Us Care for You: No Feels Safe at Home: Yes Safety Concerns: Feels Safe At This Time Assistive Devices: None Physical Exam Constitutional: WD/WN, vitals as above well developed and well nourished Respiratory: normal respiratory effort, lungs clear to auscultation normal respiratory effort Cardiovascular: RRR, no murmur, no edema Gastrointestinal (Abdomen): normal bowel sounds, soft, nontender, no hepatosplenomegaly Results & Data Vital Signs (Past 12 Hours) Vital Signs Temp Pulse Resp BP O2 Del Method 12/24/23 07:00 98.4 F 77 20 117/76 12/24/23 04:40 97.5 F L 100 H 18 115/70 12/24/23 04:28 97.5 F L 18 Room Air Coding Level of Care Code None Diagnoses Previous delivery affecting , antepartum O34.219
--- NOTE | 2023-12-24 09:07 | Labor Progress Brief Note ---
Date of Service December 24, 2023 Subjective pt feels pain with ctx, kirk when walking Assessment & Plan (1) Previous delivery affecting , antepartum: (2) 37 weeks gestation of : Plan cx has changed from prior exams. no rom. will put on monitor and see about labor pattern. fhts categ 1. will reeval cx moving forward and proceed with c/s if cx cont to change. Physical Exam Constitutional: WD/WN, vitals as above Genitourinary: Manual OB Exam: + cervical dilation 3 cm, + cervical effacement 80% and + station -2 currently not on monitor Results & Data Vital Signs (Past 12 Hours) Vital Signs Temp Pulse Resp BP O2 Del Method 12/24/23 07:00 98.4 F 77 20 117/76 12/24/23 04:40 97.5 F L 100 H 18 115/70 12/24/23 04:28 97.5 F L 18 Room Air Coding Level of Care Code None Diagnoses Previous delivery affecting , antepartum O34.219 37 weeks gestation of Z3A.37
--- NOTE | 2023-12-24 10:22 | Labor Progress Brief Note ---
Date of Service December 24, 2023 Subjective pt feels ctx are worse, stronger and just as frequent. Assessment & Plan (1) 37 weeks gestation of : (2) Previous delivery affecting , antepartum: Plan cx continues to change in early labor. will rec proceeding with delivery and pt agrees. fhts categ 1. plans repeat c/s and does desire tubal, and aware of plan for distal salpingectomies and agrees. She is sure this is how she wants to proceed. Declines . Consent reviewed and signed. Physical Exam Constitutional: WD/WN, vitals as above Genitourinary: Manual OB Exam: + cervical dilation (3-4), + cervical effacement 90% and + station -2 OB Exam Monitor Tracing: + external FHT monitor used, + external uterine monitor used (q2), + category I and + normal FHT variability Results & Data Vital Signs (Past 12 Hours) Vital Signs Temp Pulse Resp BP O2 Del Method 12/24/23 09:28 78 129/80 12/24/23 09:01 20 12/24/23 09:01 98.2 F 20 12/24/23 07:00 98.4 F 77 20 117/76 12/24/23 04:40 97.5 F L 100 H 18 115/70 12/24/23 04:28 97.5 F L 18 Room Air Coding Level of Care Code None Diagnoses 37 weeks gestation of Z3A.37 Previous delivery affecting , antepartum O34.219
[2023-12-24] MEDS ORDERED: PHENYLEPHRINE HCL 10 MG/ML VIAL ONE (10:27)
[2023-12-24] MEDS ORDERED: ONDANSETRON INJ 2 MG/ML 2 ML VIAL ONE (10:27)
[2023-12-24] MEDS ORDERED: DEXAMETHASONE SOD INJ 4 MG/ML VIAL ONE (10:27)
[2023-12-24] MEDS ORDERED: MoRPHine SULFATE PF 1 MG/ML 10 ML AMP/VIAL ONE (10:29)
[2023-12-24] MEDS: ACETAMINOPHEN 500 MG TAB PO SCH (10:37)
[2023-12-24] MEDS ORDERED: fentaNYL citrate PF 100 MCG/2 ML VIAL ONE ×3 (10:38→11:44)
[2023-12-24] MEDS ORDERED: NALOXONE HCL 1 MG in SODIUM CHLORIDE 0.9% 1,000 ML IV PRN (10:41)
[2023-12-24] MEDS ORDERED: NALOXONE HCL 0.08 MG in SYRINGE 1.8 ML IV PRN (10:41)
[2023-12-24] MEDS ORDERED: LACTATED RINGER'S 500 ML IV PRN (10:41)
[2023-12-24] MEDS ORDERED: NALBUPHINE HCL INJ 10 MG/ML AMP IV PRN (10:41)
[2023-12-24] MEDS ORDERED: KETOROLAC 30 MG/ML VIAL IV PRN (10:41)
[2023-12-24] MEDS ORDERED: NALOXONE HCL 0.4 MG/1 ML VIAL/CARP IV PRN (10:41)
[2023-12-24] MEDS ORDERED: ONDANSETRON INJ 2 MG/ML 2 ML VIAL IV PRN (10:41)
[2023-12-24] MEDS ORDERED: diphenhydrAMINE 50 MG/ML VIAL IV PRN (10:41)
[2023-12-24] MEDS ORDERED: ePHEDrine sulfate 50 MG/ML AMP IV PRN (10:41)
--- NOTE | 2023-12-24 10:41 | Anesthesiology Consultation ---
Date of Service December 24, 2023 Assessment & Plan ASA ASA2 Proposed Anesthesia Anesthesia Type: Spinal Risk / Benefits Reviewed With: PT / POA / Parent / Guardian, Accepts Plan and Informed Consent Obtained History Surgery Operation Date: 12/24/23 10:30 Proposed Procedures p Section in LD - Li Erwin MD, FACOG Height/Weight Height: 5 ft 7 in Weight: 104.78 kg Allergies Allergy/AdvReac Type Severity Reaction Status Date / Time No Known Allergies Allergy Verified 12/24/23 04:27 Medications Home Medications Medication Instructions Recorded Confirmed Last Taken 21-iron fu-folic acid 1 tab PO HS 05/27/23 12/24/23 Unknown [ Complete] ondansetron HCl 8 mg tablet 8 mg PO Q8H PRN nausea and 08/15/23 12/24/23 Unknown vomiting 5 days #30 tabs Active Medications Generic Name Dose Route Start Last Admin Trade Name Freq PRN Reason Stop Dose Admin Acetaminophen 1,000 mg 12/24/23 10:30 12/24/23 10:37 Acetaminophen 500 Mg Tab PO 12/24/23 16:00 1,000 mg PREOP MIGUEL ANGEL Administration Lactated Ringer's 1,000 mls @ 999 mls/hr 12/24/23 05:05 12/24/23 04:59 Lr IV 01/23/24 05:04 999 mls/hr .Q1H1M PRN Administration L&D Protocol Protocol Lactated Ringer's 1,000 mls @ 999 mls/hr 12/24/23 07:00 12/24/23 08:01 Lr IV 01/23/24 06:59 Infused .Q1H1M MIGUEL ANGEL Infusion Past Medical History Medical History History of anxiety No medications at this time Varicella vaccination Exercise / Class Metabolic Activity II 4-5 Yardwork/Stairs/Walk up hill Past Family History Family History Grandmother (Maternal) Breast cancer great grandmother Family/Other Hydrocephalus Nephew Brain tumor Other Diabetes Hypertension Denies family history of Ovarian cancer Colorectal cancer Past Surgical History Surgical History S/P section 07/08/20 malpresentation S/P wisdom tooth extraction Past Anesthesia History No Hx of Anesthesia Complications and No Family Hx of Anesthesia Complications History of PONV No Hx of PONV and No Hx of Motion Sickness Social History Smoking Status: Never smoker Do You Dip or Chew Tobacco: No Hx Alcohol Use: No Hx Substance Use: No substance use type: does not use Review of Systems denies fever/cough/ colds/ chest pain/ SOB/ NOLAN denies NOLAN Physical Exam Vital Signs Last Vital Signs Temp 36.8 C 12/24/23 09:01 Pulse 78 12/24/23 09:28 Resp 20 12/24/23 09:01 BP 129/80 12/24/23 09:28 O2 Del Method Room Air 12/24/23 04:28 ENMT Mouth: no TMJ abnormality and no dentition abnormality Thyromental Distance: > or= 3.5 Finger Breadths Mallampati Class: II Neck neck extension not limited Respiratory normal respiratory effort; no respiratory distress Auscultation: lungs clear to auscultation bilaterally Cardiovascular Rate/Rhythm: regular rate and regular rhythm Neurologic moves all extremities Psychiatric Orientation: alert and oriented x 3
[2023-12-24 10:45] LABS: Hematocrit (blood only) 33.6 % (37.0-47.0); Hemoglobin 11.5 g/dl (12.0-16.0); Mean Corpuscular Hemoglobin 28.5 pg (25.0-34.0); Mean Corpuscular Hgb Conc 34.2 g/dL (32.0-36.0); Mean Corpuscular Volume 83.2 fL (80.0-100.0); Mean Platelet Volume 9.7 fL (9.4-12.4); Platelet Count 220 K/uL (130-400); RDW Coefficient of Variation 13.5 % (11.5-14.5); RDW Standard Deviation 40.9 fL (36.4-46.3); Red Blood Count 4.04 M/uL (4.20-5.40)
[2023-12-24] MEDS ORDERED: NO NARCOTICS OR SEDATIVES SCH (10:45)
[2023-12-24] MEDS ORDERED: SODIUM CHLORIDE 0.9% 1,000 ML IV SCH (10:45)
[2023-12-24] MEDS ORDERED: DC INTRASPINAL MORPHINE SCH (10:45)
[2023-12-24] MEDS: ceFAZolin 3000MG 3,000 MG/72.5 ML BAG IV SCH (10:46)
[2023-12-24] MEDS: CITRIC ACID/SODIUM CITRATE 15 ML UDC ONE (10:55)
[2023-12-24] MEDS ORDERED: LACTATED RINGER'S 1,000 ML IV SCH ×2 (11:30→13:32)
[2023-12-24] MEDS ORDERED: KETAMINE HCL 10MG/ML SYR ONE (11:36)
[2023-12-24] MEDS ORDERED: OXYTOCIN 10 UNITS/ML VIAL ONE (11:37)
[2023-12-24] MEDS ORDERED: KETOROLAC 30 MG/ML VIAL ONE (12:14)
--- NOTE | 2023-12-24 12:16 | Operative Report ---
Post Operative Report Pre & Post Diagnosis Operation Date: 12/24/23 10:30 Pre-Op Diagnosis: 1. 37 weeks gestation of 2. Previous delivery, desires repeat section 3. Desires sterilization 3. Labor I identified the patient and participated in the time-out.: Yes Procedure Operation Date: 12/24/23 10:30 <No data on this case meets the specified criteria> Repeat Low Transverse Section Bilateral Distal Salpingectomies Surgeon Li Erwin MD, FACOG Member Services Representative RN Quantitative Blood Loss (QBL) 881 Findings Consistent with Post-Op Diagnosis (viable male apgars 9,9. normal uterus tubes and ovaries bilaterally. ) Fluids 1400 Specimens cord blood bilateral fallopian tubes. Drains salazar Anesthesia Type Spinal Complications none Disposition Accompanied Patient To Recovery: No Disposition: L&D Indications 28yo at 37+wks egviki presents to L&D with early labor, cx change and declined , desired repeat c/s and tubal sterilization. Description of Procedure The patient was taken to the operating room and identified. After adequate anesthesia was obtained, she was placed in the supine position with a leftward tilt on the operating table and prepped and draped in the usual sterile fashion. A salazar catheter had already been placed. The knife was used to create a Pfannensteil skin incision that was carried down to the underlying layer of fascia. The fascia was nicked in the midline and this opening was extended laterally using Campos scissors. Ruben clamps were placed on the superior and inferior aspect of the fascial incision tenting it upward and the underlying rectus muscles were dissected off the overlying fascia both sharply and bluntly using Campos scissors. The rectus muscles were bluntly in the midline. The peritoneal cavity was bluntly entered into. This opening was stretched. The bladder blade was placed. The vesicouterine peritoneum was elevated and opened up into and the bladder flap was created digitally and bladder blade was replaced. The knife was used to create a hysterotomy and this opening was stretched. The operators hand was placed through the hysterotomy and the bladder blade was removed. The head was elevated and flexed and with fundal pressure the head was delivered. The shoulders and body were rapidly delivered. The cord was clamped and cut and the 's mouth and nares were bulb suction. The infant was handed off to the awaiting pediatricians. Cord blood was obtained. The placenta was manually expressed. The uterus was exteriorized and cleared of all clots and debris. Dilute IV Pitocin was begun. The uterine tone was improving. The hysterotomy was closed in a running interlocking fashion using 0 Vicryl followed by interrupted sutures of 0 Vicryl for excellent hemostasis. The hysterotomy was hemostatic. Attention was turned the bilateral fallopian tubes that were identified to their fimbriated ends and then excised completely from cornua to fimbriated end and sent as specimens. This was done with cautery and cutting device. The pelvis was suctioned. The ut erus was returned to the abdomen. The gutters were cleared of all clots and debris. The hysterotomy was reinspected and noted to be hemostatic as were the tubal operative sites. The fascia was then closed in running fashion using 0 Vicryl. The subcutaneous fat was copiously irrigated and reapproximated using 2-0 chromic. The skin was closed in a subcuticular fashion using 4-0 monocryl. At this point the procedure was terminated. The patient was transferred to the recovery room in stable condition. All sponge, lap and needle counts are correct x2. I attest to the content of the Intraoperative Record and any orders documented therein. Any exceptions are noted below. OB Procedure Charges [id number] Add on Tubal for C/S
[2023-12-24] MEDS: HYDROmorphone INJ 0.5 MG/0.5 ML SYR IV PRN (12:30)
[2023-12-24] MEDS ORDERED: SENNA 8.6 MG TAB PO PRN (13:32)
[2023-12-24] MEDS ORDERED: MAGNESIUM HYDROXIDE SUSP 30 ML UDC PO PRN (13:32)
[2023-12-24] MEDS ORDERED: CALCIUM CARBONATE 500 MG CHEWABLE TAB PO PRN (13:32)
[2023-12-24] MEDS ORDERED: BENZOCAINE 20% SPRY 85 APPLN/85 GM CAN EXT PRN (13:32)
[2023-12-24] MEDS ORDERED: ZOLPIDEM TARTRATE 5 MG TAB PO PRN (13:32)
[2023-12-24] MEDS ORDERED: DIPHTHER/TETAN/PERTUS Vaccine (Tdap, Adol/Adult) 0.5mL IM ONE (13:32)
[2023-12-24] MEDS ORDERED: HYDROCORTISONE ACETATE 25 MG SUPP PR PRN (13:32)
--- NOTE | 2023-12-24 13:35 | Anesthesiology Progress Note ---
Date of Service December 24, 2023 Anesthesia Post Procedure Vital Signs Vital Signs: Temp Pulse Resp BP Pulse Ox O2 Del Method 12/24/23 13:31 64 107/57 L 12/24/23 13:28 65 99 12/24/23 13:27 63 114/58 L 12/24/23 13:23 72 99 12/24/23 13:18 66 98 12/24/23 13:17 63 93 12/24/23 13:12 63 98 12/24/23 13:11 61 18 116/64 98 12/24/23 13:11 64 18 99 12/24/23 13:11 61 116/64 12/24/23 13:07 63 99 12/24/23 13:02 60 98 12/24/23 13:01 56 L 18 113/71 98 12/24/23 13:01 56 L 113/71 12/24/23 12:57 60 99 12/24/23 12:52 59 L 99 12/24/23 12:51 59 L 18 118/65 99 12/24/23 12:51 59 L 118/65 12/24/23 12:47 60 98 12/24/23 12:42 54 L 99 12/24/23 12:41 57 L 18 128/57 L 98 12/24/23 12:41 57 L 128/57 L 12/24/23 12:37 57 L 99 12/24/23 12:32 75 100 12/24/23 12:31 68 22 127/63 98 12/24/23 12:31 66 127/63 12/24/23 12:27 66 100 12/24/23 12:22 64 100 12/24/23 12:21 36.5 C 64 24 119/71 100 12/24/23 12:21 74 119/71 12/24/23 09:28 78 129/80 12/24/23 09:01 20 12/24/23 09:01 36.8 C 20 12/24/23 07:00 36.9 C 77 20 117/76 12/24/23 04:40 36.4 C L 100 H 18 115/70 12/24/23 04:28 36.4 C L 18 Room Air Pain Intensity Lower Medial Pelvic: Pain Intensity: 4 Transfer of Care Handoff Completed per policy Notes Mental Status: alert / awake / arousable and participated in evaluation Patient Amnestic to Procedure: Yes Nausea / Vomiting: adequately controlled Pain: adequately controlled Airway Patency, RR, SpO2: stable & adequate BP & HR: stable & adequate Hydration State: stable & adequate Neuraxial Anesthesia: was administered and sensory block is resolving Anesthetic Complications: no major complications apparent and Pt Satisfied with anesthetic care
[2023-12-24] MEDS: ACETAMINOPHEN 500 MG TAB ONE (13:40)
[2023-12-24] MEDS: MoRPHine SULFATE PF 1 MG/ML 10 ML AMP/VIAL INT SPINAL ONE (13:40)
[2023-12-24] MEDS: OXYTOCIN 20 UNITS/LR 1,002 ML IV SCH (14:15)
[2023-12-24] MEDS ORDERED: Nursing to Pharmacy Communication SCH (15:30)
[2023-12-24] MEDS: ACETAMINOPHEN 325 MG TAB PO SCH (16:21)
[2023-12-24] MEDS: SIMETHICONE 80 MG CHEW PO SCH (16:22)
[2023-12-24] MEDS: IBUPROFEN 600 MG TAB PO SCH (16:22)
[2023-12-24] MEDS ORDERED: ACETAMINOPHEN 325 MG TAB PO SCH (17:30)
[2023-12-24] MEDS ORDERED: IBUPROFEN 600 MG TAB PO SCH (18:30)
[2023-12-24] MEDS: DOCUSATE SODIUM 100 MG CAP PO SCH (21:21)
[2023-12-24] MEDS: MoRPHine SULFATE 2 MG/ML CARP IV PRN (21:28)
[2023-12-25] MEDS ORDERED: diphenhydrAMINE Capsule 25 MG CAP PO PRN (04:42)
[2023-12-25] MEDS ORDERED: diphenhydrAMINE 50 MG/ML VIAL IV PRN (04:42)
[2023-12-25] MEDS ORDERED: HYDROmorphone INJ 0.5 MG/0.5 ML SYR IV PRN (04:42)
[2023-12-25] MEDS ORDERED: ONDANSETRON INJ 2 MG/ML 2 ML VIAL IV PRN (04:42)
[2023-12-25] MEDS ORDERED: PROMETHAZINE 12.5 MG/50.5 ML BAG IV PRN (04:42)
[2023-12-25 06:00] LABS: Basophils # (auto) 0.04 K/uL (0.00-0.20); Basophils % (auto) 0.3 %; Eosinophils # (auto) 0.06 K/uL (0.00-0.50); Eosinophils % (auto) 0.5 %; Hematocrit (blood only) 28.8 % (37.0-47.0); Hemoglobin 9.6 g/dl (12.0-16.0); Immature Granulocytes # (auto) 0.06 K/uL (0.01-0.20); Immature Granulocytes % (auto) 0.5 %; Lymphocytes # (auto) 2.65 K/uL (1.20-3.40); Lymphocytes % (auto) 20.8 %; Mean Corpuscular Hemoglobin 28.3 pg (25.0-34.0); Mean Corpuscular Hgb Conc 33.3 g/dL (32.0-36.0); Mean Platelet Volume 9.9 fL (9.4-12.4); Monocytes # (auto) 0.88 K/uL (0.11-0.59); Monocytes % (auto) 6.9 %; Neutrophils # (auto) 9.07 K/uL (1.40-6.50); Platelet Count 182 K/uL (130-400); RDW Coefficient of Variation 13.5 % (11.5-14.5); RDW Standard Deviation 41.9 fL (36.4-46.3); Red Blood Count 3.39 M/uL (4.20-5.40); White Blood Count 12.76 K/ul (4.8-10.8)
[2023-12-25] MEDS ORDERED: CITRIC ACID/SODIUM CITRATE 15 ML UDC PO SCH (06:00)
[2023-12-25] MEDS: FERROUS SULFATE 325 MG TAB PO SCH (08:51)
[2023-12-25] MEDS: PRENATAL VITAMIN 1 TAB PO SCH (08:52)
--- NOTE | 2023-12-25 10:36 | Obstetrical Progress Note ---
Date of Service December 25, 2023 Assessment & Plan (1) care and examination: Plan doing well, stable, routine care. hgb noted. breast/rhpos/ri Subjective Ambulation: ambulating normally Voiding: no voiding problems Diet Tolerance:: regular diet Lochia:: Small Feeding Type:: breast feeding denies pain issues. using pump. Constitutional: + as per Subjective / HPI Physical Exam Constitutional WD/WN, vitals as above Respiratory normal respiratory effort, lungs clear to auscultation Cardiovascular Rate/Rhythm: regular rate and regular rhythm Gastrointestinal (Abdomen) Inspection/Auscultation: abdomen normal to inspection and + abdominal surgical incision (c/d/i ) Percussion/Palpation: abdomen soft Fundus firm 2cm down Musculoskeletal nt calves tr edema Neurologic grossly normal Psychiatric A+Ox3, euthymic affect Results & Data Vital Signs (Past 12 Hours) Vital Signs Temp Pulse Pulse Resp BP Pulse Ox O2 Del Method 12/25/23 08:29 98.2 F 70 16 95/64 L Room Air 12/25/23 03:00 98.2 F 61 18 101/68 97 Room Air 12/24/23 23:06 98.2 F 52 L 19 100/66 97 Room Air
[2023-12-25] MEDS: oxyCODONE HCL IR 5 MG TAB (IMMEDIATE RELEASE) PO PRN (14:06)
[2023-12-25] MEDS: bisacodyL 5 MG TABEC PO SCH (20:45)
[2023-12-26 01:01] VITALS: RESP 16; TEMP 98.4; O2SAT 98
--- NOTE | 2023-12-26 05:44 | Obstetrical Progress Note ---
Date of Service December 26, 2023 Assessment & Plan (1) Encounter for assessment: Plan: Patient is POD 2 s/p repeat C/S and doing well - Eating well, voiding well, ambulating well - vitals reviewed and within normal limits - pain well controlled with analgesics - OOB, ambulation, diet progression as tolerated - Blood type: O+, GBS neg, rubella immune - Plan to discharge today - After discharge, 6 week follow up with OB Plan Resident Physician Supervision Note: I was present with Dr. Martinez during the history and exam. I discussed the case with the resident and agree with the findings and plan as documented in the note. Any exceptions or clarifications are listed here: pt doing well. pain well controlled with non-narcotic meds, eating, voiding ambulating without issue. no bleeding issues. breast pumping. rhpos, ri. abd soft ff 2 down, incision c/d/i with bruising. ext nt calves. pod#2 s/p repeat c/s and tubal. doing well. desires dc later today. declines narcotic script for now as not using here in hospital. plan 6wk pp check. instructions reviewed. Documented By: Li Erwin MD, FACOG Admission and Anticipated Discharge Date Admission Date: December 24, 2023 Subjective 28 yo post-operative day 2 s/p repeat Ambulation: ambulating normally Voiding: no voiding problems Passing Gas:: Yes Diet Tolerance:: regular diet Lochia:: Small Feeding Type:: bottle feeding and breast feeding without complaint Current Pain Level: 2/10, well controlled Resting comfortably this AM in NAD. Denies MADDOX, CP, SOB, N/V/D, LE pain/swelling. Review of Systems Constitutional: as per Subjective / HPI Physical Exam Physical Exam: General: patient resting comfortably, NAD, non-toxic in appearance, answers questions appropriately. Skin: warm, dry, intact HEENT: NC/AT, anicteric sclera, conjunctiva without injection, moist mucus membranes. Heart: +S1/S2, regular, no m/r/g Lungs: equal air entry bilaterally, no rales/rhonchi/wheezes Abd: +BS, soft, NT/ND, uterine fundus firm at umbilicus, caesarean incision non- tender w/o erythema Ext: warm, no clubbing/cyanosis or edema, Pia's neg. Neuro: nonfocal, speech intact, no facial droop, moving all extremities. Results & Data Vital Signs (Past 12 Hours) Vital Signs Temp Pulse Resp BP Pulse Ox O2 Del Method 12/25/23 23:30 36.9 C 74 16 106/67 98 Room Air 12/25/23 19:11 36.4 C L 80 18 105/68 97 Room Air Resident Activity Tracking Resident Involvement: Resident Care Provided Care Provided: OB Delivery (1) Encounter for assessment visit type: exam and care immediately after delivery Qualified Code(s): Z39.0 - Encounter for care and examination of mother immediately after delivery
[2023-12-26 06:05] LABS: Hematocrit (blood only) 29.6 % (37.0-47.0); Hemoglobin 9.5 g/dl (12.0-16.0)
[2023-12-26 08:54] VITALS: BP 105/64; PULSE 52
[2023-12-26] MEDS ORDERED: bisacodyL 10 MG SUPP PR PRN (12:22)
[2023-12-26] MEDS ORDERED: ACETAMINOPHEN 325 MG TAB PO PRN (17:30)
[2023-12-26] MEDS ORDERED: IBUPROFEN 600 MG TAB PO PRN (18:30)
--- NOTE | 2023-12-28 16:46 | Discharge Summary ---
Date of Service December 28, 2023 Admission HPI Per Admitting Provider Visit [place] Calculator Estimated Delivery Date Method Current WG Current Estimate 01/10/24 LMP (Certain) 37w 1d LMP: 04/05/23 : 2 Full term: 1 Premature: 0 Total Number of Induced Abortions: 0 Total Number of Spontaneous Abortions: 0 Ectopics: 0 Multiple births: 0 Number of Living Children: 1 and Delivery Plans Previous --malpresentation - Plans for repeat and tubal C/S WITH TUBAL SCHEDULED FOR 01/06/[address] STRICKLAND Patient reported contractions last night and also shooting vaginal pain she is 37 weeks and a few days second first was a section and she plans on a repeat section. While she feels tightenings in the upper abdomen it was the sharp vaginal pains that brought her in. No leakage of fluid no bleeding Discharge Data Consultations 12/24/23 10:18 Consult Anesthesiology Stat Procedures Performed Operation Date: 12/24/23 10:30 Actual Procedures p Repeat Low Transverse Section, Bilateral distal salpingectomies Hospital Course (1) Encounter for assessment: (2) Previous delivery affecting , antepartum: Plan The patient underwent the above stated procedure without incident and her postoperative course and recovery was uncomplicated. On her postoperative day #2 she was tolerating a regular diet, voiding spontaneously, ambulating without problem and was using oral meds for adequate pain control. Her postoperative hemoglobin was stable. She was given written and verbal discharge instructions and told to followup in office at 6wks. Coding Level of Care Code None Diagnoses Encounter for care or examination of mother immediately after delivery Z39.0 visit type: exam and care immediately after delivery Previous delivery affecting , antepartum O34.219
== END 2023-12-26 12:18 | disposition home or self-care (01) | DRG 785 ==
LOC: OPB 04:07 → 4S1 04:09 → 4E2 15:00
DX: O26.893 Other specified pregnancy related conditions, third trimester; N83.8 Other noninflammatory disorders of ovary, fallopian tube and broad ligament; N70.11 Chronic salpingitis; O34.211 Maternal care for low transverse scar from previous cesarean delivery; Z3A.37 37 weeks gestation of pregnancy; Z30.2 Encounter for sterilization; Z37.0 Single live birth